=== PATIENT | female | born 1935 | race African-American/Black ===

== ENCOUNTER 2018-11-07 11:52 | Emergency (ER) | payer OTHER ==
[~2018-11-07] VITALS: Ht 162.6 cm; Wt 50.0 kg
[2018-11-07 12:47] LABS: BASOPHILS % 0.9 % (0.0-2.0); EOSINOPHILS % 2.8 % (0.0-5.0); HEMATOCRIT. 43.4 % (36.0-48.0); HEMOGLOBIN. 14.7 g/dL (12.0-16.0); LYMPHOCYTES % 25.2 % (20.0-50.0); MEAN CORPUSCULAR HEMOGLOBIN 30.2 pg (28.0-32.0); MEAN CORPUSCULAR VOLUME 89.1 fL (81.0-99.0); MEAN PLATELET VOLUME 8.5 fl (7.4-10.4); MONOCYTES % 10.3 % (2.0-8.0); NEUTROPHILS % 60.8 % (40.0-76.0); PLATELET 193 x1000/uL (130-400); RED BLOOD CELL COUNT 4.88 mill/uL (4.2-5.4); RED CELL DISTRIBUTION WIDTH 14.7 % (11.6-14.6)
[2018-11-07 12:55] LABS: CHLORIDE 97 mEq/L (98-107)
[2018-11-07 14:47] VITALS: BP 141/75
== END 2018-11-07 15:15 | disposition short-term general hospital (02) ==
LOC: ER 11:52
DX: R07.9 Chest pain, unspecified (principal); I11.0 Hypertensive heart disease with heart failure; I50.9 Heart failure, unspecified; I48.91 Unspecified atrial fibrillation; J44.9 Chronic obstructive pulmonary disease, unspecified; E78.00 Pure hypercholesterolemia, unspecified; I25.2 Old myocardial infarction; I20.0 Unstable angina; Z88.0 Allergy status to penicillin; Z88.2 Allergy status to sulfonamides
CPT/HCPCS: 36415; 71045; 83880; 84484; 93005; 99285

== ENCOUNTER 2021-03-19 22:42 | Emergency (ER) | payer OTHER ==
[~2021-03-19] VITALS: Ht 154.9 cm; Wt 50.0 kg
[2021-03-20 00:41] LABS: BASOPHILS % 0.6 % (0.0-2.0); EOSINOPHILS % 4.2 % (0.0-5.0); HEMATOCRIT. 37.3 % (36.0-48.0); HEMOGLOBIN. 12.8 g/dL (12.0-16.0); LYMPHOCYTES % 14.9 % (20.0-50.0); MEAN CORPUSCULAR HEMOGLOBIN 30.9 pg (28.0-32.0); MEAN CORPUSCULAR VOLUME 90.1 fL (81.0-99.0); MEAN PLATELET VOLUME 8.7 fl (7.4-10.4); MONOCYTES % 12.4 % (2.0-8.0); NEUTROPHILS % 67.9 % (40.0-76.0); PLATELET 163 x1000/uL (130-400); RED BLOOD CELL COUNT 4.14 mill/uL (4.2-5.4); RED CELL DISTRIBUTION WIDTH 14.7 % (11.6-14.6)
[2021-03-20 00:43] LABS: CHLORIDE 97 mEq/L (98-107)
[2021-03-20 03:25] LABS: CLARITY URINE CLEAR (CLEAR); COLOR URINE YELLOW (YELLOW); KETONES URINE NEGATIVE (NEGATIVE); LEUKOCYTE ESTERASE URINE NEGATIVE (NEGATIVE); NITRITE URINE NEGATIVE (NEGATIVE); OCCULT BLOOD URINE NEGATIVE (NEGATIVE); PROTEIN URINE NEGATIVE (NEGATIVE); SPECIFIC GRAVITY URINE 1.006 (1.005-1.030); UROBILINOGEN URINE 0.2 E.U./dL (0.2-1.0)
[2021-03-20 07:58] VITALS: BP 108/51
== END 2021-03-20 08:27 | disposition short-term general hospital (02) ==
LOC: ER 22:42
DX: R07.89 Other chest pain (principal); I50.9 Heart failure, unspecified; I25.2 Old myocardial infarction; Z88.0 Allergy status to penicillin; Z88.2 Allergy status to sulfonamides; Z88.5 Allergy status to narcotic agent
CPT/HCPCS: 36415; 71045; 80053; 81003; 83880; 84484; 85025; 85379; 93005; 99285

== ENCOUNTER 2024-09-29 23:11 | Emergency (ER) | payer OTHER ==
[~2024-09-29] VITALS: Ht 160 cm; Wt 54.0 kg
[2024-09-29] MEDS: IPRATROPIUM BROMIDE (0.02%) 0.5MG/2.5ML NEB HHN STA (01:28)
[2024-09-29] MEDS: ALBUTEROL (0.083%) 2.5MG/3ML NEB HHN STA (01:28)
[2024-09-30] MEDS: METHYLPREDNISOLONE SOD SUCC 125MG/2ML (ACT-O-VIAL) IV STA (00:11)
[2024-09-30 00:40] LABS: CHLORIDE 98 mEq/L (98-107); SODIUM 139 mEq/L (136-145)
[2024-09-30 00:41] LABS: CALCIUM 8.7 mg/dL (8.7-10.4); CARBON DIOXIDE 34 mEq/L (21-32)
[2024-09-30 00:44] LABS: HEMATOCRIT. 41.1 % (36.0-48.0); MEAN CORPUSCULAR HGB CONC 31.7 g/dL (31.0-37.0); MEAN CORPUSCULAR VOLUME 91.6 fL (81.0-99.0); PLATELET 144 x1000/uL (130-400); RED BLOOD CELL COUNT 4.48 mill/uL (4.2-5.4); RED CELL DISTRIBUTION WIDTH 16.1 % (11.6-14.6); WHITE BLOOD COUNT 5.1 x1000/uL (4.5-11.0)
[2024-09-30 00:46] LABS: CREATININE 0.7 mg/dL (0.6-1.0); GLUCOSE 103 mg/dL (70-105); UREA NITROGEN BLOOD 7 mg/dL (9-23)
[2024-09-30 00:47] LABS: TROPONIN I HIGH SENSITIVITY 15 ng/L (3.0-34)
[2024-09-30 00:53] LABS: DIFFERENTIAL COMMENT 1
[2024-09-30 01:28] VITALS: PULSE 99; RESP 20; O2SAT 99
[2024-09-30] MEDS: IPRATROPIUM BROMIDE (0.02%) 0.5MG/2.5ML NEB ONE (01:29)
[2024-09-30] MEDS: ALBUTEROL (0.083%) 2.5MG/3ML NEB ONE (01:30)
[2024-09-30 02:50] LABS: INR 1.1; PARTIAL THROMBOPLASTIN TIME 31.7 sec (23.4-31.0); PROTHROMBIN TIME 11.4 sec (9.6-11.0)
[2024-09-30] MEDS ORDERED: ACETAMINOPHEN 325MG TABLET PO PRN ×2 (03:30)
[2024-09-30] MEDS ORDERED: ONDANSETRON HCL 4MG/2ML INJ IV PRN (03:30)
[2024-09-30] MEDS ORDERED: IPRATROPIUM/ALBUTEROL 0.5-3(2.5)MG/3ML NEB HHN PRN (03:30)
[2024-09-30] MEDS ORDERED: CLONIDINE 0.1MG TABLET PO PRN (03:30)
[2024-09-30] MEDS ORDERED: MAGNESIUM/ALUMINUM HYDROXIDE/SIMETHICONE 30ML UDC PO PRN (03:30)
[2024-09-30] MEDS ORDERED: GUAIFENESIN 200MG/10ML SUGAR FREE UDC PO PRN (03:30)
[2024-09-30] MEDS ORDERED: DOCUSATE SODIUM 100MG CAPSULE PO PRN (03:30)
[2024-09-30] MEDS: FUROSEMIDE 20MG/2ML VIAL IVP SCH (04:34)
[2024-09-30] MEDS ORDERED: DOXYCYCLINE 100MG/100ML 100 ML IV SCH (05:00)
[2024-09-30 05:31] LABS: *AMPHETAMINES SCREEN URINE NEGATIVE (NEGATIVE); *BARBITURATES SCREEN URINE NEGATIVE (NEGATIVE); *BENZODIAZEPINES SCREEN URINE NEGATIVE (NEGATIVE); *COCAINE SCREEN URINE NEGATIVE (NEGATIVE); CANNABINOID URINE SCREEN NEGATIVE (NEGATIVE); ECSTASY MDMA SCREEN URINE NEGATIVE (NEGATIVE); METHADONE URINE SCREEN NEGATIVE (NEGATIVE); OPIATES URINE SCREEN NEGATIVE (NEGATIVE); PHENCYCLIDINE URINE SCREEN NEGATIVE (NEGATIVE)
[2024-09-30 05:37] VITALS: BP 122/77; PULSE 92; RESP 20; TEMP 36.8; O2SAT 96
[2024-09-30 05:40] LABS: CLARITY URINE CLEAR (CLEAR); COLOR URINE YELLOW (YELLOW); GLUCOSE URINE NEGATIVE (NEGATIVE); KETONES URINE TRACE (NEGATIVE); LEUKOCYTE ESTERASE URINE NEGATIVE (NEGATIVE); NITRITE URINE NEGATIVE (NEGATIVE); OCCULT BLOOD URINE NEGATIVE (NEGATIVE); PROTEIN URINE NEGATIVE (NEGATIVE); SPECIFIC GRAVITY URINE 1.008 (1.005-1.030); UROBILINOGEN URINE 0.2 E.U./dL (0.2-1.0)
[2024-09-30 05:46] LABS: HEMOGLOBIN. 13.6 g/dL (12.0-16.0); MEAN CORPUSCULAR HEMOGLOBIN 29.2 pg (28.0-32.0); MEAN CORPUSCULAR HGB CONC 32.5 g/dL (31.0-37.0); MEAN CORPUSCULAR VOLUME 89.8 fL (81.0-99.0); MEAN PLATELET VOLUME 9.1 fl (7.4-10.4); PLATELET 153 x1000/uL (130-400); RED BLOOD CELL COUNT 4.67 mill/uL (4.2-5.4); RED CELL DISTRIBUTION WIDTH 15.7 % (11.6-14.6)
[2024-09-30 05:56] LABS: CARBON DIOXIDE 31 mEq/L (21-32); CHLORIDE 102 mEq/L (98-107); POTASSIUM 3.6 mEq/L (3.5-5.1); SODIUM 139 mEq/L (136-145)
[2024-09-30 05:57] LABS: CALCIUM 9.1 mg/dL (8.7-10.4)
[2024-09-30] MEDS ORDERED: IPRATROPIUM/ALBUTEROL 0.5-3(2.5)MG/3ML NEB HHN SCH (06:00)
[2024-09-30] MEDS ORDERED: METHYLPREDNISOLONE SOD SUCC 125MG/2ML (ACT-O-VIAL) IV SCH (06:00)
[2024-09-30 06:01] LABS: CREATININE 0.7 mg/dL (0.6-1.0); IRON 26 ug/dL (50-170)
[2024-09-30 06:02] LABS: GLUCOSE 162 mg/dL (70-105); TRIGLYCERIDE 57 mg/dL (0-150); UREA NITROGEN BLOOD 7 mg/dL (9-23)
[2024-09-30 06:03] LABS: ALANINE AMINOTRANSFERASE 10 IU/L (10-49); ALBUMIN 4.2 g/dL (3.2-4.8); ASPARTATE AMINOTRANSFERASE 20 IU/L (<34); CREATINE KINASE MB FRACTION 1.5 ng/mL (0.5-3.6); LDL CHOLESTEROL 46 mg/dL (5-100)
[2024-09-30 06:04] LABS: BILIRUBIN DIRECT 0.2 mg/dL (<=3.0); BILIRUBIN TOTAL 0.5 mg/dL (0.1-1.0); CHOLESTEROL 134 mg/dL (<200); DIGOXIN 0.3 ng/mL (0.8-2.0); HDL CHOLESTEROL 80 mg/dL (>65); PHOSPHORUS 3.7 mg/dL (2.5-4.9); PROTEIN TOTAL 6.9 g/dL (6.0-8.3); TOTAL IRON BINDING CAPACITY 334 ug/dl (250-425)
[2024-09-30 06:06] LABS: T4 FREE 1.31 ng/dL (0.89-1.76); THYROID STIMULATING HORMONE 0.81 uIU/mL (0.55-4.78)
[2024-09-30 06:23] LABS: FERRITIN 18 ng/mL (10-291)
[2024-09-30 06:30] LABS: DIFFERENTIAL COMMENT 1
[2024-09-30 06:36] LABS: HEPATITIS B SURFACE ANTIGEN NEGATIVE (Negative)
[2024-09-30 06:55] LABS: HEPATITIS A AB IGM NEGATIVE (Negative)
[2024-09-30 06:57] LABS: HEPATITIS B CORE AB IGM NEGATIVE (Negative); HEPATITIS C AB NON REACTIVE (Neg) (Negative)
[2024-09-30 07:32] LABS: PLATELET ESTIMATE NORMAL
[2024-09-30] MEDS ORDERED: PANTOPRAZOLE 40MG DR TABLET PO SCH (07:50)
[2024-09-30 09:29] LABS: PLATELET ESTIMATE NORMAL
== END 2024-09-30 05:45 | disposition short-term general hospital (02) ==
LOC: ER 23:36
DX: I25.2 Old myocardial infarction (principal); E08.9 Diabetes mellitus due to underlying condition without complications; J44.1 Chronic obstructive pulmonary disease with (acute) exacerbation; I48.91 Unspecified atrial fibrillation; Z79.01 Long term (current) use of anticoagulants; Z79.02 Long term (current) use of antithrombotics/antiplatelets; Z79.82 Long term (current) use of aspirin; Z79.899 Other long term (current) drug therapy; Z87.891 Personal history of nicotine dependence; Z88.0 Allergy status to penicillin; Z88.2 Allergy status to sulfonamides; Z88.5 Allergy status to narcotic agent; Z20.822 Contact with and (suspected) exposure to COVID-19
CPT/HCPCS: 36415 ×2; 71045; 93005; 99285; 80061; 80076; 80305; 80048; 81003; 82550; 82553; 80162; 82728; 83036; 83880; 84439; 83540; 83550; 83605; 83735; 84100; 84443; 85025; 85379; 85610; 85730; 87340; 87040; 87086; 84484; 86705; 86709; 84145; 94640; 96374; 96375; 87426; J2919; J1940; 94070; J3490

== ENCOUNTER 2025-02-26 12:38 | Inpatient (IN) | payer OTHER ==
[~2025-02-26] VITALS: Ht 170.2 cm; Wt 49.4 kg
[2025-02-26] MEDS: METHYLPREDNISOLONE SOD SUCC 125MG/2ML (ACT-O-VIAL) IV ONE (12:50)
[2025-02-26] MEDS: MAGNESIUM 2 G PREMIX 50 ML IV ONE (12:50)
[2025-02-26] MEDS: IPRATROPIUM BROMIDE (0.02%) 0.5MG/2.5ML NEB HHN SCH (12:55)
[2025-02-26 12:56] VITALS: PULSE 110; RESP 18; O2SAT 93
[2025-02-26] MEDS: ALBUTEROL (0.083%) 2.5MG/3ML NEB HHN SCH (12:56)
[2025-02-26 13:15] VITALS: PULSE 112; RESP 18
[2025-02-26 13:15] LABS: BASOPHILS % 0.6 % (0.0-2.0); EOSINOPHILS % 0.5 % (0.0-5.0); HEMATOCRIT. 38.9 % (36.0-48.0); HEMOGLOBIN. 12.8 g/dL (12.0-16.0); LYMPHOCYTES % 12.1 % (20.0-50.0); MEAN PLATELET VOLUME 9.6 fl (7.4-10.4); MONOCYTES % 7.9 % (2.0-8.0); NEUTROPHILS % 78.9 % (40.0-76.0); PLATELET 156 x1000/uL (130-400); RED BLOOD CELL COUNT 4.28 mill/uL (4.2-5.4); RED CELL DISTRIBUTION WIDTH 15.6 % (11.6-14.6)
[2025-02-26 13:30] LABS: INR 1.0
[2025-02-26 13:32] LABS: CREATININE 0.8 mg/dL (0.6-1.0); UREA NITROGEN BLOOD 7 mg/dL (9-23)
[2025-02-26 13:34] LABS: ASPARTATE AMINOTRANSFERASE 22 IU/L (<34); BILIRUBIN DIRECT 0.4 mg/dL (<=3.0); BILIRUBIN TOTAL 1.1 mg/dL (0.1-1.0); PROTEIN TOTAL 6.9 g/dL (6.0-8.3)
[2025-02-26 13:35] VITALS: PULSE 109; RESP 18
[2025-02-26 13:38] LABS: TROPONIN I HIGH SENSITIVITY 282 ng/L (3.0-34)
[2025-02-26] MEDS: ASPIRIN 325MG EC TABLET PO ONE (14:22)
[2025-02-26] MEDS: CLOPIDOGREL 75MG TABLET PO ONE (14:22)
[2025-02-26] MEDS ORDERED: DILTIAZEM HCL 60MG TABLET PO ONE (17:30)
[2025-02-26] MEDS ORDERED: IPRATROPIUM/ALBUTEROL 0.5-3(2.5)MG/3ML NEB HHN PRN ×2 (17:45→18:30)
[2025-02-26] MEDS ORDERED: ONDANSETRON HCL 4MG/2ML INJ IV PRN (18:30)
[2025-02-26] MEDS ORDERED: ACETAMINOPHEN 325MG TABLET PO PRN (18:30)
[2025-02-26] MEDS ORDERED: GUAIFENESIN 200MG/10ML SUGAR FREE UDC PO PRN (18:30)
[2025-02-26] MEDS ORDERED: DOCUSATE SODIUM 100MG CAPSULE PO PRN (18:30)
[2025-02-26 20:00] VITALS: BP 108/66; PULSE 116; RESP 19; TEMP 36.2; O2SAT 100
[2025-02-26] MEDS: PANTOPRAZOLE 40MG DR TABLET PO SCH (21:00)
[2025-02-26] MEDS: PANTOPRAZOLE SODIUM 40 MG/VIAL IV SCH (21:57)
[2025-02-26] MEDS: ENOXAPARIN 60MG/0.6ML SYR SUBCUT SCH (21:59)
[2025-02-26] MEDS: PREDNISONE 20MG TABLET PO SCH (22:00)
[2025-02-27] VITALS (11 sets, daily range): BP systolic 98–111; BP diastolic 62–81; PULSE 83–117; RESP 16–19; TEMP 35.8–36.696; O2SAT 95–100
[2025-02-27] MEDS ORDERED: INFLUENZA VACCINE 05/PF 0.5 ML SYRINGE IM ONE (02:15)
[2025-02-27 04:05] LABS: TROPONIN I HIGH SENSITIVITY 235 ng/L (3.0-34)
[2025-02-27] MEDS: IPRATROPIUM/ALBUTEROL 0.5-3(2.5)MG/3ML NEB HHN SCH (04:30)
[2025-02-27] MEDS: DILTIAZEM HCL 60MG TABLET PO SCH (06:00)
[2025-02-27] MEDS: BUDESONIDE 0.5MG/2ML NEB HHN SCH (08:45)
[2025-02-27] MEDS: DOXYCYCLINE 100MG/100ML 100 ML IV SCH (10:09)
[2025-02-27 11:41] LABS: HEMATOCRIT. 41.0 % (36.0-48.0); HEMOGLOBIN. 13.1 g/dL (12.0-16.0); MEAN PLATELET VOLUME 9.1 fl (7.4-10.4); PLATELET 132 x1000/uL (130-400); RED BLOOD CELL COUNT 4.47 mill/uL (4.2-5.4); RED CELL DISTRIBUTION WIDTH 16.0 % (11.6-14.6)
[2025-02-27 12:25] LABS: TRIGLYCERIDE 55.0 mg/dL (0-150)
[2025-02-27 12:26] LABS: LDL CHOLESTEROL 57.0 mg/dL (5-100); T4 FREE 1.03 ng/dL (0.89-1.76)
[2025-02-27 12:28] LABS: TROPONIN I HIGH SENSITIVITY 166 ng/L (3.0-34)
[2025-02-27 12:45] LABS: BAND% 5.0 % (1.0-6.0); LYMPHOCYTES % MANUAL 11.0 % (20.0-60.0); MONOCYTES % MANUAL 8.0 % (2.0-8.0); NEUTROPHILS % MANUAL 76.0 % (45.0-75.0); PLATELET ESTIMATE NORMAL
[2025-02-27] MEDS: ACETAMINOPHEN 325MG TABLET PO PRN (16:24)
[2025-02-27] MEDS: SODIUM CHLORIDE 0.9% 500 ML IV ONE (19:14)
[2025-02-27] MEDS ORDERED: FURO20TA4 PO (19:59)
[2025-02-27 23:05] LABS: TROPONIN I HIGH SENSITIVITY 154 ng/L (3.0-34)
[2025-02-28] VITALS (9 sets, daily range): BP systolic 93–131; BP diastolic 59–83; PULSE 72–131; RESP 15–22; TEMP 35.6–36.5; O2SAT 96–98
[2025-02-28 07:24] LABS: CLARITY URINE CLEAR (CLEAR); COLOR URINE YELLOW (YELLOW); GLUCOSE URINE NEGATIVE (NEGATIVE); KETONES URINE NEGATIVE (NEGATIVE); LEUKOCYTE ESTERASE URINE NEGATIVE (NEGATIVE); NITRITE URINE NEGATIVE (NEGATIVE); OCCULT BLOOD URINE NEGATIVE (NEGATIVE); PH URINE 6.0 (4.5-8.0); PROTEIN URINE NEGATIVE (NEGATIVE); SPECIFIC GRAVITY URINE 1.019 (1.005-1.030); UROBILINOGEN URINE 0.2 E.U./dL (0.2-1.0)
[2025-02-28 07:49] LABS: *AMPHETAMINES SCREEN URINE NEGATIVE (NEGATIVE); *BARBITURATES SCREEN URINE NEGATIVE (NEGATIVE); *BENZODIAZEPINES SCREEN URINE NEGATIVE (NEGATIVE); *COCAINE SCREEN URINE NEGATIVE (NEGATIVE); CANNABINOID URINE SCREEN NEGATIVE (NEGATIVE); ECSTASY MDMA SCREEN URINE NEGATIVE (NEGATIVE); METHADONE URINE SCREEN NEGATIVE (NEGATIVE); OPIATES URINE SCREEN NEGATIVE (NEGATIVE); PHENCYCLIDINE URINE SCREEN NEGATIVE (NEGATIVE)
[2025-02-28 09:06] LABS: INFLUENZA TYPE A Presumptive Negative (Pres. Neg.); INFLUENZA TYPE B Presumptive Negative (Pres. Neg.); RESPIRATORY SYNCYTIAL VIRUS Not Detected (Not Detectd)
[2025-02-28 09:47] LABS: PLATELET 134 x1000/uL (130-400); RED BLOOD CELL COUNT 4.23 mill/uL (4.2-5.4); RED CELL DISTRIBUTION WIDTH 15.9 % (11.6-14.6)
[2025-02-28 10:21] LABS: CREATININE 0.7 mg/dL (0.6-1.0); UREA NITROGEN BLOOD 10 mg/dL (9-23)
[2025-02-28 21:52] LABS: CREATINE KINASE MB FRACTION 2.5 ng/mL (0.5-3.6)
[2025-02-28 21:53] LABS: TRIGLYCERIDE 63.0 mg/dL (0-150)
[2025-02-28 21:54] LABS: LDL CHOLESTEROL 55.0 mg/dL (5-100)
[2025-02-28 21:57] LABS: T4 FREE 1.04 ng/dL (0.89-1.76)
[2025-02-28 21:59] LABS: TROPONIN I HIGH SENSITIVITY 93 ng/L (3.0-34)
== END 2025-02-28 20:45 | disposition short-term general hospital (02) | DRG 189 ==
LOC: ER 12:38 → 6WST 17:21 → EDBEDREQTM 17:25 → EDBEDREQ 17:25 → ENRESERV 17:37
PROVIDERS: ADMIT Internal Medicine; ATTEND Internal Medicine
DX: J96.21 Acute and chronic respiratory failure with hypoxia (principal); J44.1 Chronic obstructive pulmonary disease with (acute) exacerbation; E87.20 Acidosis, unspecified; R17 Unspecified jaundice; I24.89 Other forms of acute ischemic heart disease; I48.91 Unspecified atrial fibrillation; K21.9 Gastro-esophageal reflux disease without esophagitis; E83.42 Hypomagnesemia; R73.03 Prediabetes; Z88.0 Allergy status to penicillin; Z79.01 Long term (current) use of anticoagulants; Z88.5 Allergy status to narcotic agent; Z79.899 Other long term (current) drug therapy; Z87.891 Personal history of nicotine dependence; Z88.2 Allergy status to sulfonamides; Z99.81 Dependence on supplemental oxygen; I11.9 Hypertensive heart disease without heart failure; Z20.822 Contact with and (suspected) exposure to COVID-19
CPT/HCPCS: 36415; 71045; 80048; 80061; 80076; 80305; 81003; 82550; 82553; 83036; 83605; 83735; 83880; 84145; 84439; 84443; 84484; 85025; 85027; 85379; 87420; 87426; 87804; 93005; 93306; 94070; 94640; 94664; 98960; 99291; J1650; J2470; J2919; J3475; J3490; J7512; J7626